=== PATIENT | female | born 1960 | race African-American/Black ===

== ENCOUNTER → 2018-04-08 | Outpatient (CLI) | payer MEDICARE, MEDICAID ==
[~2018-04-08] MED LIST: COPAXONE; [UNRECOGNIZED DRUG - OTHER]
== END | disposition home or self-care (01) ==
LOC: CT 08:54
PROVIDERS: ATTEND Internal Medicine Cardiovascular Disease
DX: M48.02 Spinal stenosis, cervical region (principal); R51 Headache; V89.2XXA Person injured in unspecified motor-vehicle accident, traffic, initial encounter

== ENCOUNTER 2024-11-27 16:41 | Emergency (ER) | payer MEDICARE, MEDICAID ==
[~2024-11-27] VITALS: Ht 160 cm; Wt 69.0 kg
[~2024-11-27 16:41] MED LIST changes: +AMLO5TAB88 PO; +ATOR10TA69 PO; -COPAXONE; +FURO40TA5 MT; +GLAT40SY SQ; +HYDR-3735 PO; +MEMA5TAB16 PO; +RISP-28 MT; -[UNRECOGNIZED DRUG - OTHER]
[2024-11-27 16:49] VITALS: O2SAT 100
[2024-11-27 17:45] LABS: INR 1.1; PARTIAL THROMBOPLASTIN TIME 28.2 sec (23.4-31.0); PROTHROMBIN TIME 11.5 sec (9.6-11.0)
[2024-11-27 17:47] LABS: CARBON DIOXIDE 30 mEq/L (21-32); CHLORIDE 104 mEq/L (98-107); POTASSIUM 4.3 mEq/L (3.5-5.1); SODIUM 143 mEq/L (136-145)
[2024-11-27 17:48] LABS: CALCIUM 9.4 mg/dL (8.7-10.4); HEMATOCRIT. 37.1 % (36.0-48.0); HEMOGLOBIN. 12.2 g/dL (12.0-16.0); MEAN CORPUSCULAR HEMOGLOBIN 27.8 pg (28.0-32.0); MEAN CORPUSCULAR HGB CONC 32.9 g/dL (31.0-37.0); MEAN CORPUSCULAR VOLUME 84.5 fL (81.0-99.0); MEAN PLATELET VOLUME 8.4 fl (7.4-10.4); PLATELET 101 x1000/uL (130-400); RED BLOOD CELL COUNT 4.39 mill/uL (4.2-5.4); RED CELL DISTRIBUTION WIDTH 14.1 % (11.6-14.6); WHITE BLOOD COUNT 5.1 x1000/uL (4.5-11.0)
[2024-11-27 17:51] LABS: DIFFERENTIAL COMMENT 1
[2024-11-27 17:53] LABS: CREATININE 0.9 mg/dL (0.6-1.0); GLUCOSE 120 mg/dL (70-105); UREA NITROGEN BLOOD 11 mg/dL (9-23)
[2024-11-27 18:05] LABS: TROPONIN I HIGH SENSITIVITY < 4 ng/L (3.0-34)
[2024-11-27] MEDS: MECLIZINE 25MG TABLET PO ONE (18:10)
[2024-11-27 18:12] LABS: CLARITY URINE CLEAR (CLEAR); COLOR URINE YELLOW (YELLOW); GLUCOSE URINE NEGATIVE (NEGATIVE); KETONES URINE TRACE (NEGATIVE); LEUKOCYTE ESTERASE URINE NEGATIVE (NEGATIVE); NITRITE URINE NEGATIVE (NEGATIVE); OCCULT BLOOD URINE NEGATIVE (NEGATIVE); PH URINE 6.5 (4.5-8.0); PROTEIN URINE 1+ (NEGATIVE); SPECIFIC GRAVITY URINE 1.029 (1.005-1.030)
[2024-11-27 18:33] LABS: PLATELET ESTIMATE DECREASED
[2024-11-27 19:01] LABS: BACTERIA URINE TRACE; RBC URINE NONE SEEN /hpf (0-2); SQUAMOUS EPITHELIAL CELL URINE 1+ /lpf (RARE/1+); WBC URINE 0-2 /hpf (0-2)
[2024-11-27 19:02] LABS: MUCUS URINE 1+ /lpf (< = 2+)
[2024-11-27 19:39] VITALS: BP 140/83; PULSE 89; RESP 18; TEMP 36.9; O2SAT 100
== END 2024-11-27 19:41 | disposition home or self-care (01) ==
LOC: ER 16:41
DX: R42 Dizziness and giddiness (principal); Z88.0 Allergy status to penicillin; Z98.890 Other specified postprocedural states; Z79.899 Other long term (current) drug therapy; Z90.710 Acquired absence of both cervix and uterus
CPT/HCPCS: 99285; 71045; 80048; 81003; 85025; 85610; 85730; 84484; 36415; 93005; J8597